=== PATIENT | male | born 1995 | race Caucasian/White ===

== ENCOUNTER 2024-06-12 22:11 | Emergency (ER) | payer MEDICAID, SELFPAY ==
[2024-06-12 22:17] VITALS: BP 163/84; PULSE 60; RESP 16; TEMP 36.7; O2SAT 97; BMI 24.3
--- NOTE | 2024-06-12 22:22 | ECG_ITS ---
[facility] Test Date: 2024-06-12 Pat Name: Lukas Velasquez Department: Room: Gender: Male Lead Process Engineer: : 1995 Requested By: Maite Tai Order Number: [id number] Wily MD: Ruth Gil M.D. Measurements Intervals [place] Rate: 62 P: 18 GA: 126 QRS: 39 QRSD: 98 T: 16 QT: 408 QTc: 416 Interpretive Statements SINUS RHYTHM WITH SINUS ARRHYTHMIA No previous ECG available for comparison Electronically Signed On 06-13-2024 23:07:09 CDT by Ruth Gil M.D. [id number] f
--- NOTE | 2024-06-12 22:45 | W.ED.CHESTPA ---
HPI - Chest Pain General: Chief Complaint: Chest Pain Stated Complaint: CP Time Seen by Provider: 06/12/24 22:20 Source: patient Mode of arrival: ambulatory Limitations: no limitations History of Present Illness: Patient is a 29-year-old male presents to ED today with a complaint of chest pain and feeling like his heart is beating very hard. He states symptoms started approximately an hour ago while driving. He states they were driving back from [place] and has been on the road since 10 AM this morning. He states he consumed 2 energy drinks to help him stay awake. 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 He has no known cardiac history. He is not having any shortness of breath or difficulty breathing. Has not noticed any leg pain or calf swelling. MD complaint: chest pain Onset (ago): hour(s) Timing of current episode: other (improving) Prior episodes: No Onset: during rest and associated with drug use Pain location: left chest Pain radiation: none Severity: moderate Quality: aching Relieving factors: nothing Exacerbating factors: nothing Associated symptoms: Deny abdominal pain, dyspnea, fever(s), nausea, palpitations, syncope or vomiting Treatment prior to arrival: none Risk Factors: Coronary artery disease risk factors: none Thoracic aortic dissection risk factors: none Related Data Allergies Allergy/AdvReac Type Severity Reaction Status Date / Time No Known Allergies Allergy Verified 06/12/24 22:22 Review of Systems Const: Denies: fever(s), chills, body aches, fatigue or malaise Card: Reports: chest pain and other (feels like his heart is beating really hard); Denies: palpitations, irregular heart rhythm, edema, swelling of feet/ankles, lightheadedness, syncope, pre-syncope, dyspnea on exertion, orthopnea, leg pain with exertion or acrocyanosis Resp: Denies: dyspnea, productive cough, non-productive cough, wheezing, pain on inspiration, hemoptysis or chest congestion GI: Denies: abdominal pain, nausea, vomiting or diarrhea : Denies: flank pain, difficulty urinating, dysuria, urinary frequency, urinary urgency or urinary hesitancy Musc: Denies: neck pain, back pain, extremity pain, extremity swelling, joint pain or joint swelling Skin/Breast: Denies: rash Neuro: Denies: headache(s), numbness in extremities, weakness in extremities, sensory changes or dizziness Physical Exam Const: COMMON NORMALS: no acute distress, average body habitus, patient oriented x3, no limitations, healthy appearing, alert and well nourished GENERAL APPEARANCE: cooperative ORIENTATION/CONSCIOUSNESS: Yes awake, Yes oriented to person, Yes oriented to place and Yes oriented to time Neck/C-Spine: COMMON NORMALS: full ROM GENERAL: Yes normal visual inspection Chest: COMMONS NORMALS: normal inspection of the chest and normal palpation of entire chest wall Resp: COMMON NORMALS: normal respiratory effort and clear to auscultation bilaterally AUSCULTATION: clear to auscultation bilaterally Cardio: COMMON NORMALS: regular rate and regular rhythm RATE: regular rate RHYTHM: regular rhythm Extremity: COMMON NORMALS: no clubbing, cyanosis or edema, no calf tenderness and no pedal edema GENERAL: Yes normal exam except as noted Neuro: INGRID COMA SCALE: document GCS findings [place] coma scale eye opening: Spontaneous [place] coma scale verbal response: Orientated [place] coma scale motor response: Obey commands Ingrid coma scale total score: 15 COMMON NORMALS: patient oriented x3 SENSORIUM/ORIENTATION: Yes alert, Yes oriented to person, Yes oriented to place and Yes oriented to time Skin: COMMON NORMALS: no rashes or lesions noted GENERAL SKIN EXAM: no rashes or lesions noted Course Vital Signs: Vital signs: Vital Signs Temperature 98.1 F 06/12/24 22:17 Pulse Rate 60 06/12/24 22:17 Respiratory Rate 16 06/12/24 22:17 Blood Pressure 163/84 06/12/24 22:17 Pulse Oximetry 97 06/12/24 22:17 Oxygen Delivery Me thod Room Air 06/12/24 22:17 MDM - Chest Pain Medical Decision Making Patient's EKG is nonischemic. His CXR personal interpretation is unremarkable. His blood work including baseline troponin and D-dimer are unremarkable. Patient did not want to stay for 2-hour trop as his and kids are sitting in the car in the parking lot as they are driving back home to [place], [place]. Patient states his pain has pretty well subsided at time of my re-examination. Return to ED precautions given. Medical Records I reviewed the patient's medical records. Lab Data I reviewed the patient's lab results. 06/12/24 22:57 06/12/24 22:57 Laboratory Results WBC 7.86 10^3/uL (3.29-11.43) 06/12/24 22:57 RBC 5.03 10^6/uL (3.85-5.65) 06/12/24 22:57 Hgb 15.10 g/dL (11.27-16.99) 06/12/24 22:57 Hct 44.7 % (37-53) 06/12/24 22:57 MCV 88.9 fl (82-101) 06/12/24 22:57 MCH 30.0 pg (27-33) 06/12/24 22:57 MCHC 33.8 g/dL (30-55) 06/12/24 22:57 RDW 11.9 % (12.1-15.1) L 06/12/24 22:57 Plt Count 255 10^3/cmm (157-399) 06/12/24 22:57 MPV 10.6 fL (7.4-10.4) H 06/12/24 22:57 Neut % (Auto) 65.7 % 06/12/24 22:57 Lymph % (Auto) 20.1 % 06/12/24 22:57 [place] % (Auto) 7.5 % 06/12/24 22:57 Eos % (Auto) 5.9 % 06/12/24 22:57 Baso % (Auto) 0.5 % 06/12/24 22:57 Neut # (Auto) 5.17 10^3/uL (1.8-7.7) 06/12/24 22:57 Lymph # (Auto) 1.6 10^3/uL (0.8-4.8) 06/12/24 22:57 [place] # (Auto) 0.6 10^3/uL (0.2-0.9) 06/12/24 22:57 Eos # (Auto) 0.5 10^3/uL (0.0-0.8) 06/12/24 22:57 Baso # (Auto) 0.0 10^3/uL (0.0-0.1) 06/12/24 22:57 Nucleated RBC % (auto) 0 % 06/12/24 22:57 Nucleated RBCs # 0.0 /100WBC 06/12/24 22:57 D-Dimer 0.33 ug/mLFEU (0-0.59) 06/12/24 22:57 Sodium 136 mmol/L (136-145) 06/12/24 22:57 Potassium 4.7 mmol/L (3.5-5.1) 06/12/24 22:57 Chloride 96 mmol/L (98-107) L 06/12/24 22:57 Carbon Dioxide 30 mmol/L (22-29) H 06/12/24 22:57 Anion Gap 14.7 (5-19) 06/12/24 22:57 BUN 12 mg/dL (6-20) 06/12/24 22:57 Creatinine 0.9 mg/dL (0.7-1.2) 06/12/24 22:57 GFR Calculation 99.8 mL/min (90-130) 06/12/24 22:57 Glucose 95 mg/dL (65-115) 06/12/24 22:57 Calculated Osmolality 282 mOsm/kg (285-295) L 06/12/24 22:57 Calcium 10.4 mg/dL (8.5-10.5) 06/12/24 22:57 Total Bilirubin 0.5 mg/dL (0.15-1.2) 06/12/24 22:57 AST 21 U/L (0-40) 06/12/24 22:57 ALT 24 U/L (0-41) 06/12/24 22:57 Alkaline Phosphatase 117 U/L (40-130) 06/12/24 22:57 Troponin T Baseline < 6 ng/L (0-15) 06/12/24 22:57 Total Protein 7.9 g/dL (6.6-8.7) 06/12/24 22:57 Albumin 4.9 g/dL (3.5-5.2) 06/12/24 22:57 Globulin 3.0 g/dL (1.3-4.6) 06/12/24 22:57 XR interpretation done by ED provider, pending radiology final review Discharge Plan Discharge Patient Disposition: Home Clinical Impression: Non-cardiac chest pain Condition: Stable Discharge Orders: Discharge ED (Routine); Ordered 06/12/24 Ordered By: Rosario Olivia Activity Restrictions/Additional Instructions: As we discussed, please see medical reevaluation for onset of severe chest pain, shortness of breath, difficulty breathing, lightheadedness/dizziness/passing out episodes, or any other concerns you may have. Coding Level of Care Code ED Tech Writer for Brian Baez
--- NOTE | 2024-06-12 22:53 | XRR_ITS ---
PROCEDURE INFORMATION: Exam: XR Chest Exam date and time: 06/12/2024 11:05 PM Age: 29 years old Clinical indication: Pain; Chest pressure; Additional info: Chest pain TECHNIQUE: Imaging protocol: Radiologic exam of the chest. Views: 1 view. COMPARISON: No relevant prior studies available. FINDINGS: Lungs: Unremarkable. No consolidation. Pleural spaces: Unremarkable. No pleural effusion. No pneumothorax. Heart/Mediastinum: Unremarkable. No cardiomegaly. Bones/joints: Unremarkable. XR/XR chest 1V portable [id number] IMPRESSION: No acute findings.
[2024-06-12 23:07] LABS: Basophils % 0.5 %; Eosinophils # 0.5 10^3/uL (0.0-0.8); Eosinophils % 5.9 %; Hematocrit 44.7 % (37-53); Lymphocytes # 1.6 10^3/uL (0.8-4.8); Lymphocytes % 20.1 %; Mean Corpuscular HGB Conc 33.8 g/dL (30-55); Mean Corpuscular Volume 88.9 fl (82-101); Mean Platelet Volume 10.6 fL (7.4-10.4); Monocytes # 0.6 10^3/uL (0.2-0.9); Monocytes % 7.5 %; Neutrophils # 5.17 10^3/uL (1.8-7.7); Neutrophils % 65.7 %; Nucleated Red Blood Cells % 0 %; Platelet Count 255 10^3/cmm (157-399); Red Blood Count 5.03 10^6/uL (3.85-5.65); Red Cell Distribution Width 11.9 % (12.1-15.1); White Blood Count 7.86 10^3/uL (3.29-11.43)
[2024-06-12 23:21] LABS: Troponin(5th) Baseline < 6 ng/L (0-15)
[2024-06-12 23:22] LABS: D Dimer 0.33 ug/mLFEU (0-0.59)
[2024-06-12 23:23] LABS: Alanine Aminotransferase 24 U/L (0-41); Albumin Level 4.9 g/dL (3.5-5.2); Alkaline Phosphatase 117 U/L (40-130); Anion Gap 14.7 (5-19); Aspartate Amino Transferase 21 U/L (0-40); Blood Urea Nitrogen 12 mg/dL (6-20); Calcium 10.4 mg/dL (8.5-10.5); Carbon Dioxide 30 mmol/L (22-29); Chloride 96 mmol/L (98-107); Creatinine Clr Calc Pharmacy 120.0273; Glomerular Filtration Rate 99.8 mL/min (90-130); Glucose 95 mg/dL (65-115); Osmolality Calculated 282 mOsm/kg (285-295); Potassium 4.7 mmol/L (3.5-5.1); Sodium 136 mmol/L (136-145); Total Bilirubin 0.5 mg/dL (0.15-1.2); Total Protein 7.9 g/dL (6.6-8.7)
[2024-06-12 23:45] VITALS: BP 138/90; PULSE 74; RESP 18; O2SAT 98
== END 2024-06-12 23:46 | disposition home or self-care (01) ==
PROVIDERS: Emergency Provider Physician Assistant
DX: R07.89 Other chest pain (principal)
CPT/HCPCS: 36415; 71045; 80053; 84484; 85025; 85378; 93005; 99285